=== PATIENT | male | born 1985 | race Two or more races ===

== ENCOUNTER 2018-07-25 10:04 | Inpatient (IN) | payer MEDICARE, MEDICAID ==
[~2018-07-25] VITALS: Ht 165.1 cm; Wt 67.6 kg
[2018-07-25 10:26] LABS: BASOPHILS % (AUTO) 0.5 % (0.0-2.0); EOSINOPHILS % (AUTO) 1.8 % (1.0-6.0); HEMATOCRIT 44.2 % (41-53); HEMOGLOBIN 15.5 g/dL (13.5-17.5); LYMPHOCYTES # (AUTO) 2.6 K/uL (1.0-4.8); LYMPHOCYTES % (AUTO) 30.1 % (22.0-44.0); MEAN CORPUSCULAR HEMOGLOBIN 30.3 pg (26.0-34.0); MEAN CORPUSCULAR HGB CONC 35.1 G/dL (31.0-37.0); MEAN CORPUSCULAR VOLUME 86 fL (80-100); MONOCYTES # (AUTO) 0.5 K/uL (0.1-1.0); MONOCYTES % (AUTO) 5.3 % (2.0-9.0); NEUTROPHILS # (AUTO) 5.3 K/uL (1.8-7.7); NEUTROPHILS % (AUTO) 62.3 % (40.0-70.0); PLATELET COUNT (AUTO) 325 K/uL (150-450); RED BLOOD CELL COUNT(AUTO) 5.12 MIL/uL (4.50-5.90); RED CELL DISTRIBUTION WIDTH 12.6 % (11.5-14.5)
[2018-07-25 10:34] LABS: GLUCOSE,POINT OF CARE 159 MG/DL (70-110)
[2018-07-25 10:36] LABS: AMPHET/METH SCREEN,URINE NEGATIVE (NEGATIVE); BARBITURATE SCREEN, URINE NEGATIVE (NEGATIVE); BENZODIAZEPINES SCREEN,URINE NEGATIVE (NEGATIVE); CANNABINOID SCREEN,URINE NEGATIVE (NEGATIVE); COCAINE SCREEN,URINE NEGATIVE (NEGATIVE); METHADONE SCREEN, URINE NEGATIVE (NEGATIVE); OPIATE SCREEN,URINE NEGATIVE (NEGATIVE)
[2018-07-25 10:38] LABS: ANION GAP 12 mmol/L (8-16); CALCIUM, TOTAL 9.5 mg/dL (8.8-10.5); CARBON DIOXIDE 25 mmol/L (22-29); CHLORIDE 103 mmol/L (98-107); CREATININE 0.68 mg/dL (0.60-1.30); GLOMERULAR FILTR. RATE CALC > 60 mL/min (>60); GLUCOSE,RANDOM 160 mg/dL (70-110); POTASSIUM 4.1 mmol/L (3.5-5.1); SODIUM SERUM 140 mmol/L (136-145); UREA NITROGEN, BLOOD 6 mg/dL (7-18)
[2018-07-25 10:39] LABS: PHENCYCLIDINE SCREEN,URINE NEGATIVE (NEGATIVE)
[2018-07-25 10:44] LABS: ALANINE AMINOTRANSFERASE 29 U/L (12-78); ALBUMIN 4.2 g/dL (3.4-5.0); ALKALINE PHOSPHATASE 107 U/L (46-116); ASPARTATE AMINOTRANSFERASE 10 U/L (15-37); BILIRUBIN,TOTAL 0.7 mg/dL (0.1-1.0); TOTAL PROTEIN, SERUM 8.5 g/dL (6.4-8.2)
[2018-07-25] MEDS ORDERED: OLANZapine 5 MG TABLET PO ONE (11:45)
[2018-07-25] MEDS ORDERED: OLANZapine 5 MG RAPDIS TABLET PO PRN (12:00)
[2018-07-25] MEDS ORDERED: ZOLPIDEM TARTRATE 10 MG TABLET PO PRN (12:00)
[2018-07-25] MEDS: ZIPRASIDONE HCL 40 MG CAPSULE PO SCH (16:46)
[2018-07-25 16:59] VITALS: BP 107/60
[2018-07-25] MEDS ORDERED: PETROLATUM,WHITE 71 GM JELLY TP PRN (17:30)
[2018-07-25] MEDS ORDERED: MAGNESIUM HYDROXIDE SUSPENSION 30 ML UDCUP PO PRN (17:30)
[2018-07-25] MEDS ORDERED: ALBUTEROL SULFATE HFA 90 MCG/PUFF 8 GM INHALER IH PRN (17:30)
[2018-07-25] MEDS ORDERED: NICOTINE 14 MG/24 HOUR PATCH TD PRN (17:30)
[2018-07-25] MEDS ORDERED: LOPERAMIDE HCL 2 MG CAPSULE PO PRN (17:30)
[2018-07-25] MEDS ORDERED: CloNIDine HCL 0.1 MG TABLET PO PRN (17:30)
[2018-07-25] MEDS ORDERED: IBUPROFEN 400 MG TABLET PO PRN (17:30)
[2018-07-25] MEDS ORDERED: ACETAMINOPHEN 325 MG TABLET PO PRN (17:30)
[2018-07-25] MEDS ORDERED: GuaiFENesin/D-METHORPHAN [SUGAR-FREE] 200-20MG/10 ML SYRUP UDCUP PO PRN (17:30)
[2018-07-25] MEDS ORDERED: DOCUSATE SODIUM 100 MG CAPSULE PO PRN (17:30)
[2018-07-25] MEDS ORDERED: ONDANSETRON HCL 4 MG TABLET PO PRN (17:30)
[2018-07-25] MEDS ORDERED: DEXTROSE 50%-WATER 25 GM/50 ML SYRINGE IVP PRN (17:45)
[2018-07-25] MEDS ORDERED: OLANZapine 5 MG TABLET PO SCH (21:00)
[2018-07-25 21:03] LABS: GLUCOMETER DEV NAME(LOC) 3EX 1; GLUCOSE,POINT OF CARE 133 MG/DL (70-110)
[2018-07-26 05:34] LABS: GLUCOMETER DEV NAME(LOC) 3EI C; GLUCOSE,POINT OF CARE 140 MG/DL (70-110)
[2018-07-26 07:18] LABS: HEMOGLOBIN A1C 7.2 % (4.5-6.2)
[2018-07-26] MEDS: ZIPRASIDONE HCL 40 MG CAPSULE PO SCH ×2 (07:21→16:46)
[2018-07-26 07:47] LABS: CHOL/HDL RATIO 4.1 (4.2-7.3); THYROID STIMULATING HORMONE 0.6 uIU/mL (0.36-3.74)
[2018-07-26 08:30] VITALS: BP 96/60
[2018-07-26 11:38] LABS: GLUCOMETER DEV NAME(LOC) 3EX 1; GLUCOSE,POINT OF CARE 162 MG/DL (70-110)
[2018-07-26] MEDS: INSULIN LISPRO 100 UNITS/ML SQ PRN ×2 (12:58→21:35)
[2018-07-26] MEDS: LORazepam 2 MG TABLET PO PRN (16:48)
[2018-07-26 17:00] VITALS: BP 121/59
[2018-07-26 17:00] LABS: GLUCOMETER DEV NAME(LOC) 3EX 1; GLUCOSE,POINT OF CARE 139 MG/DL (70-110)
[2018-07-26 20:59] LABS: GLUCOMETER DEV NAME(LOC) 3EX 1; GLUCOSE,POINT OF CARE 183 MG/DL (70-110)
[2018-07-27 05:39] LABS: GLUCOMETER DEV NAME(LOC) 3EI C; GLUCOSE,POINT OF CARE 147 MG/DL (70-110)
[2018-07-27] MEDS: ZIPRASIDONE HCL 40 MG CAPSULE PO SCH ×2 (06:41→16:22)
[2018-07-27] MEDS: INSULIN LISPRO 100 UNITS/ML SQ PRN ×4 (07:04→21:24)
[2018-07-27 08:00] VITALS: BP 126/72
[2018-07-27] MEDS: LORazepam 2 MG TABLET PO PRN ×2 (11:00→16:21)
[2018-07-27 11:19] LABS: GLUCOMETER DEV NAME(LOC) 3EX 1; GLUCOSE,POINT OF CARE 202 MG/DL (70-110)
[2018-07-27] MEDS: MetFORMIN HCL 500 MG TABLET PO SCH (16:22)
[2018-07-27 16:33] LABS: GLUCOMETER DEV NAME(LOC) 3EX 1; GLUCOSE,POINT OF CARE 144 MG/DL (70-110)
[2018-07-27 16:35] VITALS: BP 110/72
[2018-07-27 21:19] LABS: GLUCOMETER DEV NAME(LOC) 3EX 1; GLUCOSE,POINT OF CARE 180 MG/DL (70-110)
[2018-07-28 05:34] LABS: GLUCOMETER DEV NAME(LOC) 3EI C; GLUCOSE,POINT OF CARE 136 MG/DL (70-110)
[2018-07-28] MEDS: ZIPRASIDONE HCL 40 MG CAPSULE PO SCH (06:36)
[2018-07-28] MEDS: MetFORMIN HCL 500 MG TABLET PO SCH ×2 (06:36→16:49)
[2018-07-28 08:05] VITALS: BP 124/90
[2018-07-28 11:59] LABS: GLUCOMETER DEV NAME(LOC) 3EI C; GLUCOSE,POINT OF CARE 140 MG/DL (70-110)
[2018-07-28 16:30] VITALS: BP 121/71
[2018-07-28] MEDS: ZIPRASIDONE HCL 60 MG CAPSULE PO SCH (16:48)
[2018-07-28 17:04] LABS: GLUCOMETER DEV NAME(LOC) 3EX 1; GLUCOSE,POINT OF CARE 122 MG/DL (70-110)
[2018-07-28] MEDS: INSULIN LISPRO 100 UNITS/ML SQ PRN (21:48)
[2018-07-29] MEDS: MetFORMIN HCL 500 MG TABLET PO SCH ×2 (06:32→17:32)
[2018-07-29] MEDS: ZIPRASIDONE HCL 60 MG CAPSULE PO SCH ×2 (06:32→17:32)
[2018-07-29 06:59] VITALS: BP 110/69
[2018-07-29 08:30] VITALS: BP 128/72
[2018-07-29] MEDS: LORazepam 2 MG TABLET PO PRN ×2 (10:29→19:06)
[2018-07-29 11:31] LABS: GLUCOMETER DEV NAME(LOC) 3EX 1; GLUCOSE,POINT OF CARE 150 MG/DL (70-110)
[2018-07-29 11:32] LABS: GLUCOMETER DEV NAME(LOC) 3EI C; GLUCOSE,POINT OF CARE 159 MG/DL (70-110)
[2018-07-29 11:35] LABS: GLUCOMETER DEV NAME(LOC) 3EX 1; GLUCOSE,POINT OF CARE 138 MG/DL (70-110)
[2018-07-29 16:24] LABS: GLUCOMETER DEV NAME(LOC) 3EX 1; GLUCOSE,POINT OF CARE 119 MG/DL (70-110)
[2018-07-29 19:11] VITALS: BP 100/65
[2018-07-29 20:24] LABS: GLUCOMETER DEV NAME(LOC) 3EX 1; GLUCOSE,POINT OF CARE 202 MG/DL (70-110)
[2018-07-29] MEDS: INSULIN LISPRO 100 UNITS/ML SQ PRN (20:43)
[2018-07-30 05:40] LABS: GLUCOMETER DEV NAME(LOC) 3EI C; GLUCOSE,POINT OF CARE 123 MG/DL (70-110)
[2018-07-30] MEDS: ZIPRASIDONE HCL 60 MG CAPSULE PO SCH ×2 (06:53→16:58)
[2018-07-30] MEDS: MetFORMIN HCL 500 MG TABLET PO SCH ×2 (06:53→16:58)
[2018-07-30 08:25] VITALS: BP 126/77
[2018-07-30 11:49] LABS: GLUCOMETER DEV NAME(LOC) 3EX 1; GLUCOSE,POINT OF CARE 110 MG/DL (70-110)
[2018-07-30] MEDS: HALOPERIDOL 5 MG TABLET PO PRN (12:34)
[2018-07-30] MEDS: LORazepam 2 MG TABLET PO PRN (12:47)
[2018-07-30 17:00] VITALS: BP 115/79
[2018-07-30] MEDS: INSULIN LISPRO 100 UNITS/ML SQ PRN ×2 (17:01→21:42)
[2018-07-30 17:09] LABS: GLUCOMETER DEV NAME(LOC) 3EX 1; GLUCOSE,POINT OF CARE 169 MG/DL (70-110)
[2018-07-30 21:43] LABS: GLUCOMETER DEV NAME(LOC) 3EX 1; GLUCOSE,POINT OF CARE 223 MG/DL (70-110)
[2018-07-31 02:05] VITALS: BP 115/85
[2018-07-31] MEDS: MAG HYDROX/AL HYDROX/SIMETH ES 30 ML SUSPENSION UDCUP PO PRN (03:17)
[2018-07-31 05:44] LABS: GLUCOMETER DEV NAME(LOC) 3EI C; GLUCOSE,POINT OF CARE 136 MG/DL (70-110)
[2018-07-31] MEDS: ZIPRASIDONE HCL 60 MG CAPSULE PO SCH ×2 (06:54→16:48)
[2018-07-31] MEDS: MetFORMIN HCL 500 MG TABLET PO SCH ×2 (06:54→16:48)
[2018-07-31 08:11] VITALS: BP 120/69
[2018-07-31 11:09] LABS: GLUCOMETER DEV NAME(LOC) 3EX 1; GLUCOSE,POINT OF CARE 146 MG/DL (70-110)
[2018-07-31] MEDS: INSULIN LISPRO 100 UNITS/ML SQ PRN ×2 (11:42→17:32)
[2018-07-31 16:30] VITALS: BP 124/71
[2018-07-31 18:40] LABS: GLUCOMETER DEV NAME(LOC) 3EX 1; GLUCOSE,POINT OF CARE 157 MG/DL (70-110)
[2018-07-31] MEDS ORDERED: LORazepam 2 MG/ML VIAL ONE (18:55)
[2018-07-31] MEDS ORDERED: HALOPERIDOL LACTATE 5 MG/ML VIAL ONE (18:56)
[2018-07-31] MEDS ORDERED: DiphenhydrAMINE HCL 50 MG/ML VIAL ONE (18:56)
[2018-07-31] MEDS ORDERED: DiphenhydrAMINE HCL 50 MG/ML VIAL IM ONE (19:00)
[2018-07-31] MEDS ORDERED: LORazepam 2 MG/ML VIAL IM ONE (19:00)
[2018-07-31] MEDS ORDERED: HALOPERIDOL LACTATE 5 MG/ML VIAL IM ONE (19:00)
[2018-08-01 02:50] LABS: GLUCOMETER DEV NAME(LOC) 3EX 1; GLUCOSE,POINT OF CARE 105 MG/DL (70-110)
[2018-08-01] MEDS: MetFORMIN HCL 500 MG TABLET PO SCH ×2 (06:35→17:29)
[2018-08-01] MEDS: ZIPRASIDONE HCL 80 MG CAPSULE PO SCH ×2 (06:36→17:29)
[2018-08-01] MEDS: INSULIN LISPRO 100 UNITS/ML SQ PRN ×2 (07:04→17:29)
[2018-08-01 08:00] VITALS: BP 107/65
[2018-08-01 11:03] LABS: GLUCOMETER DEV NAME(LOC) 3EI C; GLUCOSE,POINT OF CARE 164 MG/DL (70-110)
[2018-08-01] MEDS: LORazepam 2 MG TABLET PO PRN (13:41)
[2018-08-01] MEDS: HALOPERIDOL 5 MG TABLET PO PRN (13:41)
[2018-08-01 19:31] VITALS: BP 107/59
[2018-08-02 01:11] LABS: GLUCOMETER DEV NAME(LOC) 3EX 1; GLUCOSE,POINT OF CARE 123 MG/DL (70-110)
[2018-08-02 04:46] VITALS: BP 107/65
[2018-08-02] MEDS: MetFORMIN HCL 500 MG TABLET PO SCH ×2 (06:59→17:44)
[2018-08-02] MEDS: INSULIN LISPRO 100 UNITS/ML SQ PRN ×4 (07:06→21:39)
[2018-08-02] MEDS: ZIPRASIDONE HCL 80 MG CAPSULE PO SCH ×2 (07:20→17:44)
[2018-08-02 07:30] LABS: GLUCOMETER DEV NAME(LOC) 3EX 1; GLUCOSE,POINT OF CARE 142 MG/DL (70-110)
[2018-08-02 08:00] VITALS: BP 117/55
[2018-08-02] MEDS: LORazepam 2 MG TABLET PO PRN ×3 (10:44→20:15)
[2018-08-02] MEDS: HALOPERIDOL 5 MG TABLET PO PRN ×3 (10:44→20:15)
[2018-08-02 16:00] VITALS: BP 109/80
[2018-08-02 23:40] LABS: GLUCOMETER DEV NAME(LOC) 3EI C; GLUCOSE,POINT OF CARE 157 MG/DL (70-110)
[2018-08-03] MEDS: MAG HYDROX/AL HYDROX/SIMETH ES 30 ML SUSPENSION UDCUP PO PRN ×2 (03:52→14:45)
[2018-08-03] MEDS: ZIPRASIDONE HCL 80 MG CAPSULE PO SCH ×2 (06:43→17:09)
[2018-08-03] MEDS: MetFORMIN HCL 500 MG TABLET PO SCH ×2 (06:43→17:09)
[2018-08-03 08:28] LABS: GLUCOMETER DEV NAME(LOC) 3EX 1; GLUCOSE,POINT OF CARE 147 MG/DL (70-110)
[2018-08-03 09:07] VITALS: BP 109/63
[2018-08-03 11:43] LABS: GLUCOMETER DEV NAME(LOC) 3EX 1; GLUCOSE,POINT OF CARE 156 MG/DL (70-110)
[2018-08-03 15:57] LABS: GLUCOMETER DEV NAME(LOC) 3EX 1; GLUCOSE,POINT OF CARE 158 MG/DL (70-110)
[2018-08-03 16:19] LABS: GLUCOMETER DEV NAME(LOC) 3EX 1; GLUCOSE,POINT OF CARE 123 MG/DL (70-110)
[2018-08-03 16:43] LABS: GLUCOMETER DEV NAME(LOC) 3EI C; GLUCOSE,POINT OF CARE 140 MG/DL (70-110)
[2018-08-03 16:43] LABS: GLUCOMETER DEV NAME(LOC) 3EX 1; GLUCOSE,POINT OF CARE 120 MG/DL (70-110)
[2018-08-03 16:44] VITALS: BP 107/65
[2018-08-03 17:45] LABS: GLUCOMETER DEV NAME(LOC) 3EI C; GLUCOSE,POINT OF CARE 152 MG/DL (70-110)
[2018-08-03] MEDS: INSULIN LISPRO 100 UNITS/ML SQ PRN (22:58)
[2018-08-04] MEDS: MAG HYDROX/AL HYDROX/SIMETH ES 30 ML SUSPENSION UDCUP PO PRN ×2 (00:58→08:59)
[2018-08-04 05:50] LABS: GLUCOMETER DEV NAME(LOC) 3EI C; GLUCOSE,POINT OF CARE 181 MG/DL (70-110)
[2018-08-04 05:57] VITALS: BP 109/67
[2018-08-04] MEDS: ZIPRASIDONE HCL 80 MG CAPSULE PO SCH (06:36)
[2018-08-04] MEDS: MetFORMIN HCL 500 MG TABLET PO SCH (06:37)
[2018-08-04] MEDS: INSULIN LISPRO 100 UNITS/ML SQ PRN (06:38)
[2018-08-04 08:12] VITALS: BP 123/83
[2018-08-04 10:59] LABS: GLUCOMETER DEV NAME(LOC) 3EX 1; GLUCOSE,POINT OF CARE 95 MG/DL (70-110)
[2018-08-04] MEDS ORDERED: ZIPR80CA2 PO (12:30)
[2018-08-04] MEDS ORDERED: METF-960 PO (12:31)
== END 2018-08-04 14:30 | disposition home or self-care (01) | DRG 885 ==
LOC: EMS 10:06 → 3EX 13:05
PROVIDERS: ADMIT Psychiatry & Neurology Psychiatry; ATTEND Psychiatry & Neurology Psychiatry
DX: F25.0 Schizoaffective disorder, bipolar type (principal); R45.851 Suicidal ideations; Z28.21 Immunization not carried out because of patient refusal; Z59.0 Homelessness; E11.9 Type 2 diabetes mellitus without complications; F41.9 Anxiety disorder, unspecified; F17.210 Nicotine dependence, cigarettes, uncomplicated; F10.10 Alcohol abuse, uncomplicated; E78.5 Hyperlipidemia, unspecified; F15.10 Other stimulant abuse, uncomplicated; Z71.41 Alcohol abuse counseling and surveillance of alcoholic; Z71.51 Drug abuse counseling and surveillance of drug abuser
CPT/HCPCS: 83036; 84443; 90686; 99285; 99406; G0480; J1200; J1630; J2060